=== PATIENT | male | born 2000 | race Two or more races ===

== ENCOUNTER 2024-12-19 05:21 | Emergency (ER) | payer MEDICAID, SELFPAY ==
[2024-12-19 05:22] VITALS: BMI 47.0
--- NOTE | 2024-12-19 05:36 | EDRME_ITS ---
Rapid Medical Screening Exam RME Arrival date/time: 12/19/24 05:21 Chief Complaint: Extremity Problem,Nontraumatic Vital signs: Vital Signs Temperature 98 F 12/19/24 05:39 Pulse Rate 87 12/19/24 05:39 Respiratory Rate 18 12/19/24 05:39 Blood Pressure 133/82 H 12/19/24 05:39 Pulse Oximetry (%) 97 12/19/24 05:39 RME Narrative: Right ankle pain/swelling x2 days, initiated after he stepped wrong off a [employer]
--- NOTE | 2024-12-19 05:36 | XR_ITS ---
EXAMINATION: Ankle, right 3 views . Technique: Ankle AP, oblique, lateral 3 views Date and time of exam: December 19, 2024 0447 hours INDICATIONS: Injury to the ankle today, ankle pain. FINDINGS: Mild lateral malleolar soft tissue swelling No ankle fracture or dislocation IMPRESSION: No ankle fracture or dislocation
[2024-12-19 05:39] VITALS: BP 133/82; PULSE 87; RESP 18; TEMP 36.6; O2SAT 97
[2024-12-19] MEDS: ACETAMINOPHEN 500 MG TABLET 1000 MG PO (05:58)
[2024-12-19] MEDS: KETOROLAC INJ 60 MG/2 ML VIAL 30 MG IM (05:58)
--- NOTE | 2024-12-19 06:55 | EDNOTE_ITS ---
ED Extremity Problem RME/HPI General Chief complaint: Extremity Problem,Nontraumatic Stated complaint: RIGHT ANKLE SWELLING X 2 DAYS Arrival date/time: 12/19/24 05:21 RME / HPI RME / HPI Narrative: DR. 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 There is no other injury or trauma there is no contusion. He has no other area of pain all of his other joints are within normal limits. He has not been sick in any other way. This is not a Workmen's Comp. 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 He states he can bear weight on his ankle but has pain with any movement. No fever vomiting diarrhea. Related Data Previous Rx's ?Medication ?Instructions ?Recorded nystatin 100,000 unit/gram topical 1 applic topical BI D #30 grams 07/26/20 ointment Allergies Allergy/AdvReac Type Severity Reaction Status Date / Time No Known Allergies Allergy Verified 12/19/24 05:22 Review of Systems Review of Systems Systems Reviewed: All systems reviewed, normal except as documented Narrative Review of Systems: Constitutional: DENIES: fevers; Eyes: DENIES: loss of vision; Head/Ear/Nose: DENIES: loss of hearing. Throat: DENIES: dysphagia. Cardiovascular: DENIES: chest pain, dyspnea, or syncope. Respiratory: DENIES: shortness of breath; Gastrointestinal: DENIES: rectal bleeding or melena. Genitourinary: DENIES: dysuria (painful or difficult urination); Musculoskeletal: POSITIVES: right ankle pain/swelling Skin: DENIES: rash; Neurological: DENIES: loss of function or movement; Psychiatric: DENIES: recent major life stressor, emotional problem, illicit drug use or abuse; Endocrinology: DENIES: weight change,; Hematologic/Lymphatic: DENIES: abnormal bruising. Allergic/Immunologic: DENIES: urticaria (hives). Past Medical History Social History SMOKING STATUS: Never smoker SUBSTANCE USE: does not use ALCOHOL: Never ED Exam Narrative Physical exam: Physical Exam: General: The vital signs were reviewed. The patient is non-toxic, in no apparent distress and appears healthy with a patent airway, no respiratory distress and has no apparent circulatory problems. Head & Scalp: Normocephalic, atraumatic. Face: Appears normal and is without lesions, deformity. Ears: Left external pinna appears normal. Right external pinna appears normal. Eyes: The sclera is anicteric. No obvious photophobia. The Left and Right Orbit/Lid/Conjunctiva appears normal without swelling, discoloration or injection. Nose: The nose is without deformity, discharge or tenderness; Throat: Appears normal. The mucous membranes are pink and moist without exudates, redness or mass seen. The tongue appears normal. Neck: The neck is supple and no apparent mass or adenopathy. Chest: The chest wall is normal in size and symmetry and has no chest wall tenderness or crepitus. The patient displays normal ventilator effort without retractions, accessory muscle use and has adequate air movement bilaterally with no wheezes and no rales. Cardiovascular: Regular rate and rhythm; No murmurs, rubs, or gallops; Gastrointestinal: The abdomen appears normal. No obvious hernias or mass. The abdomen is soft and benign, non-distended, with no pain, no guarding and no rebound tenderness. Bowel sounds are present and normal sounding. No CVA tenderness. Genitourinary: Back/Spine: Extremities/Musculoskeletal/lymphatic: The right ankle has a stable ankle mortise. There is swelling and puffiness laterally over the over the talofibular area. The leg and foot have normal sensation. Toes are warm with no atrophic changes. With inversion stressing he has immediate pain. There is no obvious bone pain on palpation of the tibia and fibula distally. The bilateral upper and lower extremities are warm. There is no evidence of arterial insufficiency. There is no evidence of venous insufficiency/edema. The patient spontaneously moves bilateral upper and lower extremities with no pain and no limitation of movement. There is no apparent, injury or trauma. Skin: The skin is warm, dry and intact. No rashes. No petechia. No purpura. No abnormal bruising. The color is appropriate with no cyanosis. Mental status/Psychiatric: Mental status is appropriate for age. The patient has no apparent delusions, visual hallucinations, no apparent audible hallucinations. The patient has no apparent suicidal thoughts/ideation and no apparent homicidal thoughts/ideation. Neurological: The patient is awake, alert, interactive, cordial, cooperative and is oriented to name and situation. The patient follows commands and answers historical question with no impairment. There is no visual disturbance apparent. The pupils are equal and reactive bilaterally with normal eye movements and no diplopia The bilateral upper and lower extremities have normal strength, normal range of motion and normal functioning. The gait, station and balance appear to be baseline with no acute change Course Quality Measures none Orders Category Date Time Status XR ankle comp RT min 3V Stat Exams 12/19/24 05:36 Completed Acetaminophen Tab [Tylenol ES Tab] Med 12/19/24 05:36 Discontinued 1,000 mg PO X1 ONE Ketorolac Inj [Toradol Inj] Med 12/19/24 05:36 Discontinued 30 mg IM X1 ONE Vital Signs Vital signs: Vital Signs Temperature 98 F 12/19/24 05:39 Pulse Rate 87 12/19/24 05:39 Respiratory Rate 18 12/19/24 05:39 Blood Pressure 133/82 H 12/19/24 05:39 Pulse Oximetry (%) 97 12/19/24 05:39 Extremity Problem MDM Narrative MDM Narrative:: Patient appears to have an inversion ankle injury but denies having a event where he rolled his ankle. Nonetheless he is got puffiness and tenderness over the ligamentous areas and not over the bone. This time we will immobilize for comfort. He can keep it elevated use ibuprofen for pain and follow-up with his doctor. X-ray was reviewed by myself there is no obvious fracture dislocation or foreign body. There are some slight lateral swelling seen. The stirrup splint to the ankle was applied. Patient seems to tolerate it well. He is neurovascularly intact postplacement. He can bear weight and ambulate appears to give him adequate immobilization. Patient was advised in detail and will follow-up with his doctor in 2 days he knows to be elevated he is ibuprofen as mentioned earlier. Kelsie Joel, am scribing for and in the presence of Dr. Pompa. Patient data External records reviewed:: [facility] previous records (Reviewed last ED visit dated 05/04/21, discharged with the following: Elevated liver enzymes) Clinical information provided by:: patient Social determinants that could affect healthcare access:: none Patient has the following chronic illnesses:: Denies any PMHx, surgeries, daily medications, or known allergies. How is presenting disease/condition affected by chronic disease/condition?: no chronic disease Evaluation data The following diagnostics were reviewed and interpreted by me:: radiology exam(s) Lab and/or radiology exams considered but not ordered:: none Interpretation Summary: See above under MDM narrative. RADIOLOGY Procedure(s): XR ankle comp RT min 3V Accession Number(s): [id number] cc: Samia Banks; Ankit Edward MD; Gato Hines PA-C~ EXAMINATION: Ankle, right 3 views . Technique: Ankle AP, oblique, lateral 3 views Date and time of exam: December 19, 2024 0447 hours INDICATIONS: Injury to the ankle today, ankle pain. FINDINGS: Mild lateral malleolar soft tissue swelling No ankle fracture or dislocation IMPRESSION: No ankle fracture or dislocation Dictated By: Aknit Edward MD Medications / Prescriptions Medications or Prescriptions considered but not ordered:: none Medication administrations:: Medication Administration History Discontinued Medications Acetaminophen (Acetaminophen 500 Mg Tablet) 1,000 mg PO X1 ONE Stop: 12/19/24 05:37 Last Admin: 12/19/24 05:58 Dose: 1,000 mg Documented By: BRIAN Ketorolac Tromethamine (Ketorolac Inj 60 Mg/2 Ml Vial) 30 mg IM X1 ONE Stop: 12/19/24 05:37 Last Admin: 12/19/24 05:58 Dose: 30 mg Documented By: CB see above Consultations Consultation(s) initiated? (list below): No Diagnosis Extremity Problem Differential Diagnosis: lower extremity edema and other (ankle fracture, ankle dislocation) Most likely diagnosis given after review of the tests above:: sprain of ankle, right Admission Indicated Admission indicated?: not indicated Admission Request Was there a request for admission?: No Disposition Plan Disposition Plan: Discharge Discharge Attestation Discharge Attestation: The patient and all family members were given an opportunity to ask questions and understood the discharge instructions. Discharge instructions specifically effects, indications for sooner follow up or return to the emergency department, and the expected course of current diagnosis. Patient condition: Stable Discharge Plan Plan Patient Disposition: HOME (Self Care) Prescriptions/Referrals Prescriptions/Med Rec: No Action nystatin 100,000 unit/gram ointment 1 applic topical BID Qty: 30 0RF Referrals: Samia Banks PA-C [Primary Care Provider] - In 1 week Problem List Clinical Impression: Sprain of ankle, right Patient/Caregiver Discharge Instructions Education Materials: ED Ankle Sprain (Adult), ED Splints and Casts Additional Instructions: Use the ankle splint as provided. Keep the ankle elevated is much as possible to minimize any further swelling. You can use ibuprofen for pain. No work for 7 days. Follow-up with your doctor in 5 to 7 days for reevaluation. As discussed torn ligaments 3 to 5 weeks before stabilization and pain relief occurs. No driving no sports until cleared by your doctor. Print Language: Panamanian Stand Alone Forms: Kristy Award Info., Patient Portal Info Letter
== END 2024-12-19 08:11 | disposition home or self-care (01) ==
PROVIDERS: Emergency Provider Emergency Medicine; PCP Specialist
DX: S93.401A Sprain of unspecified ligament of right ankle, initial encounter (principal); X58.XXXA Exposure to other specified factors, initial encounter
CPT/HCPCS: 29515; 73610; 96372; 99283; J1885; A9270

== ENCOUNTER 2025-06-27 07:12 | Emergency (ER) | payer MEDICAID, SELFPAY ==
[2025-06-27 07:22] VITALS: BP 128/87; PULSE 80; RESP 18; TEMP 36.8; O2SAT 99; BMI 47.0
--- NOTE | 2025-06-27 07:32 | EDNOTE_ITS ---
Nausea/Vomit./Diarrhea-RME/HPI General Chief complaint: Weakness Stated complaint: WEAKNESS, N/V Time Seen by Provider: 06/27/25 07:18 Source: patient Arrival date/time: 06/27/25 07:12 25-year-old male with no known medical history presents to the emergency room with a chief complaint of generalized weakness and nausea/vomiting x 3 days Mode of arrival: ambulatory Limitations: no limitations Related Data Previous Rx's ?Medication ?Instructions ?Recorded nystatin 100,000 unit/gram topical 1 applic topical BI D #30 grams 07/26/20 ointment Allergies Allergy/AdvReac Type Severity Reaction Status Date / Time No Known Allergies Allergy Verified 06/27/25 07:14 Review of Systems Review of Systems Systems Reviewed: All systems reviewed, normal except as documented Constitutional Constitutional: Reports system reviewed and no additional complaints, except as documented, Denies fatigue, Denies fever(s), Denies headache(s) and Denies weakness Eyes Eyes: Reports system reviewed and no additional complaints, except as documented, Denies blurry vision and Denies change in vision ENT Ears, Nose, Mouth, and Throat: Reports system reviewed and no additional complaints, except as documented, Denies otalgia, Denies headache(s), Denies nasal congestion, Denies throat swelling and Denies vertigo Cardiovascular Cardiovascular: Reports system reviewed and no additional complaints, except as documented, Denies chest pain, Denies dyspnea and Denies dyspnea on exertion Respiratory Respiratory: Reports system reviewed and no additional complaints, except as documented, Denies chest congestion, Denies cough, Denies dyspnea, Denies dyspnea on exertion and Denies wheezing Gastrointestinal Gastrointestinal: Reports system reviewed and no additional complaints, except as documented, Denies abdominal pain, Denies cramping, Reports nausea and Reports vomiting Genitourinary Genitourinary: Reports system reviewed and no additional complaints, except as documented, Denies dysuria and Denies hematuria Musculoskeletal Musculoskeletal: Reports system reviewed and no additional complaints, except as documented and Denies back pain Integumentary/Breasts Skin/Breast: Reports system reviewed and no additional complaints, except as documented and Denies wounds Neurologic Neurologic: Reports system reviewed and no additional complaints, except as documented, Denies confusion, Denies headache(s), Denies lack of coordination, Denies vertigo and Denies weakness Psychiatric Psychiatric: Reports system reviewed and no additional complaints, except as documented, Denies anxiety, Denies confusion, Denies depression, Denies paranoia, Denies suicidal ideation and Denies tactile hallucinations Endocrine Endocrine: Reports system reviewed and no additional complaints, except as documented and Denies fatigue Hematologic/Lymphatic Hematologic/Lymphatic: Reports system reviewed and no additional complaints, except as documented and Denies lymphadenopathy Allergic/Immunologic Allergic/Immunologic: Reports system reviewed and no additional complaints, except as documented, Denies throat swelling, Denies urticaria and Denies wheezing Past Medical History Social History SMOKING STATUS: Current every day smoker SUBSTANCE USE: does not use ED Exam General Limitations: Present no limitations General appearance: Present alert and in no apparent distress Head Head exam: Present atraumatic Eye Eye exam: Present normal appearance, PERRL and EOMI ENT ENT exam: Present normal exam, normal oropharynx and mucous membranes moist Neck Neck exam: Present normal inspection, full ROM and trachea midline Chest Chest inspection: Present normal inspection and symmetric chest wall rise Respiratory Respiratory exam: Present normal lung sounds bilaterally Cardiovascular Cardiovascular exam: Present regular rate, normal rhythm and normal heart sounds Abdominal Exam Abdominal exam: Present soft and normal bowel sounds Extremities Exam Extremities exam: Present normal inspection and full ROM Back Exam Back exam: Present normal inspection and full ROM Neurological Exam Neurological exam: Present alert, oriented X3 and CN II-XII intact Psychiatric Psychiatric exam: Present normal affect and normal mood Skin Skin exam: Present warm, dry, intact and normal color Course Quality Measures none Orders Category Date Time Status Bedside COVID-19 Antigen Test NOW Care 06/27/25 07:32 Active Bedside Influenza A&B Antigen Test NOW Care 06/27/25 07:32 Active CBC Stat Lab 06/27/25 07:52 Completed CMP [Comprehensive Metabolic Panel] Stat Lab 06/27/25 07:52 Completed FLU A&B [Influenza A & B Rapid Panel] Stat Lab 06/27/25 08:08 Completed Free T4 (Free Thyroxine) Stat Lab 06/27/25 07:52 Completed Hemoglobin A1C [Glycohemoglobin w (eAG)] Stat Lab 06/27/25 07:52 Completed Lipase Stat Lab 06/27/25 07:52 Completed TSH [Thyroid Stimulating Hormone] Stat Lab 06/27/25 07:52 Completed UA [Urinalysis] Stat Lab 06/27/25 07:45 Received Urine Culture Stat Lab 06/27/25 07:45 Received Ondansetron Odt [Zofran Odt] Med 06/27/25 07:32 Discontinued 4 mg PO X1 ONE Vital Signs Vital signs: Vital Signs Temperature 98.3 F 06/27/25 07:22 Pulse Rate 80 06/27/25 07:22 Respiratory Rate 18 06/27/25 07:22 Blood Pressure 128/87 H 06/27/25 07:22 Pulse Oximetry (%) 99 06/27/25 07:22 Oxygen Delivery Method Room Air 06/27/25 07:22 Nausea/Vomiting/Diarrhea MDM Narrative MDM Narrative:: 25-year-old male with no known medical history presents to the emergency room with a chief complaint of generalized weakness and nausea/vomiting x 3 days Patient is hemodynamically stable and in no apparent distress Patient states he has been on Ozempic for weight loss but he has been taking it for a couple of months now with no side effects. Physical examination shows a soft nontender abdomen. The patient denies chest pain palpitations or any other signs and symptoms obtain nausea and vomiting and weakness. CBC CMP were negative for any leukocytosis or any signs of any electrolyte imbalance. Thyroid function was within normal limits. COVID-19 and influenza were both negative Patient was discharged and educated to follow-up with primary care provider in the next 24 to 48 hours and return to the emergency room for any evidence of worsening signs or symptoms Patient data External records reviewed:: [facility] previous records Clinical information provided by:: patient Social determinants that could affect healthcare access:: none Patient has the following chronic illnesses:: No chronic illness How is presenting disease/condition affected by chronic disease/condition?: no chronic disease Evaluation data The following diagnostics were reviewed and interpreted by me:: lab results and radiology exam(s) Lab and/or radiology exams considered but not ordered:: Labs and radiology exams considered and ordered Interpretation Summary: N/A Medications / Prescriptions Medications / Prescriptions considered but not ordered:: Medication given Medication administrations:: Medication Administration History Discontinued Medications Ondansetron HCl (Ondansetron Odt 4 Mg Tabrap) 4 mg PO X1 ONE; Protocol Stop: 06/27/25 07:33 Last Admin: 06/27/25 07:58 Dose: 4 mg Documented By: ARF Medication given Consultations Consultation(s) initiated? (list below): No Diagnosis Nausea Differential Diagnosis: traveler's diarrhea, food poisoning, gastroenteritis, drug-induced nausea and vomiting and dehydration Most likely diagnosis given after review of the tests above:: Gastroenteritis Admission Indicated Admission indicated?: not indicated Admission Request Was there a request for admission?: No Disposition Plan Disposition Plan: Discharge Discharge Attestation Discharge Attestation: The patient and all family members were given an opportunity to ask questions and understood the discharge instructions. Discharge instructions specifically effects, indications for sooner follow up or return to the emergency department, and the expected course of current diagnosis. Patient condition: Stable Discharge Plan Plan Patient Disposition: HOME (Self Care) Discharge Disposition comment: Stable Prescriptions/Referrals Prescriptions/Med Rec: No Action nystatin 100,000 unit/gram ointment 1 applic topical BID Qty: 30 0RF Referrals: Samia Banks PA-C [Primary Care Provider] - In 1 week Problem List Clinical Impression: Gastroenteritis Patient/Caregiver Discharge Instructions Education Materials: ED Gastroenteritis, Noninfectious Additional Instructions: Please follow-up with your primary care provider in the next 24 to 48 hours Your blood work was negative for any acute findings. There is no signs of infection or any electrolyte imbalance. Your thyroid function was within normal limits. Your hemoglobin A1c levels are within normal limits. Please follow-up with your primary care provider for further management For any evidence of worsening signs or symptoms return to the emergency room immediately Print Language: Frisian Stand Alone Forms: Kristy Award Info., Work/School Release, Patient Portal Info Letter RONALD/AMANDA Supervising Physician YUIL Supervising Physician: Dr. Reyez
[2025-06-27 07:56] LABS: Collection Type, Urine Clean Catch
[2025-06-27] MEDS: ONDANSETRON ODT 4 MG TABRAP PO (07:58)
[2025-06-27 08:04] LABS: Basophils # (Auto) 0.0 Thou/mm3 (0.0-0.2); Basophils % (Auto) 0 % (0-2.5); Eosinophils # (Auto) 0.1 Thou/mm3 (0.0-0.5); Eosinophils % (Auto) 1 % (0-10); Hematocrit 47.6 % (41.0-53.0); Hemoglobin 15.7 g/dL (13.5-16.0); Immature Granulocytes Auto 0.08 Thou/mm3 (0.00-0.00); Lymphocytes # (Auto) 1.2 Thou/mm3 (1.0-4.8); Lymphocytes % (Auto) 11 % (10-50); Mean Corpuscular HGB Conc 33.0 g/dl (31.0-37.0); Mean Corpuscular Hemoglobin 29.5 pg (25.0-35.0); Mean Corpuscular Volume 90 fL (80-100); Monocytes # (Auto) 0.6 Thou/mm3 (0.0-0.8); Monocytes % (Auto) 6 % (0-12); Neutrophils # (Auto) 8.6 Thou/mm3 (1.8-7.7); Neutrophils % (Auto) 81 % (37-80); Nucleated Red Blood Cell # 0.00 Thou/mm3 (0.00-0.00); Nucleated Red Blood Cell % 0 /100 WBC (0); Platelet Count 289 Thou/mm3 (140-440); RDW Standard Deviation 43.2 fL (35.1-43.9); Red Blood Count 5.32 Miln/mm3 (4.50-5.90); White Blood Count 10.6 Thou/mm3 (3.8-10.6)
[2025-06-27 08:08] LABS: Bilirubin,Urine Negative (Negative); Blood,Urine Negative (Negative); Clarity,Urine Clear (Clear/Hazy); Color,Urine Yellow (Lt Yel-Yel); Glucose, Urine Negative (Negative); Hyaline Casts,Urine < 1 /hpf (0-1); Ketones,Urine Negative (Negative); Leukocyte Esterase,Urine Negative (Negative); Nitrite,Urine Negative (Negative); PH,Urine 6.0 (5.0-7.0); Protein,Urine Trace (Neg - Trace); RBC,Urine 2 /hpf (0-3); Specific Gravity,Urine 1.022 (1.001-1.035); Squamous Epithelial Cell,Urine < 1 /hpf (0-5); Urobilinogen,Urine Negative mg/dL (0.0-1.0); WBC,Urine 3 /hpf (0-5)
[2025-06-27 08:25] LABS: Alanine Aminotransferase 35 U/L (10-49); Albumin, Serum 4.4 gm/dL (3.5-5.0); Albumin/Globulin Ratio 1.5 (1.2-2.2); Alkaline Phosphatase 113 U/L (46-116); Anion Gap 8 (7-16); Aspartate Amino Transferase 19 U/L (0-34); BUN/Creatinine Ratio 7 Ratio (12-20); Bilirubin,Total 0.9 mg/dL (0.3-1.2); Blood Urea Nitrogen 6 mg/dL (9-23); Calcium 9.3 mg/dL (8.3-10.6); Calcium (Corrected) 9.3 mg/dL (8.5-10.1); Carbon Dioxide 27.5 mMol/L (20.0-31.0); Chloride 105 mMol/L (98-107); Creatinine (Component) 0.9 mg/dL (0.6-1.3); Estimated Creatinine Clearance 165.5 mL/min (>60); Free T4 (Free Thyroxine) 1.13 ng/dL (0.89-1.76); Globulin 2.9 gm/dL (2.3-3.5); Glucose 99 mg/dL (74-106); Lipase 29 U/L (12-53); Osmolality,Calculated 277 (275-295); Potassium 4.1 mMol/L (3.4-5.1); Sodium 140 mMol/L (136-145); Thyroid Stimulating Hormone 0.94 uIU/mL (0.55-4.78); Total Protein 7.3 gm/dL (5.7-8.2); eGFR > 60 See Note
[2025-06-27 08:36] LABS: Influenza A Ag Negative; Influenza B Ag Negative
[2025-06-27 08:39] LABS: Glucose Estimated Average 88 mg/dL (80-131); Hemoglobin A1C 4.7 % Hgb (4.8-6.0)
== END 2025-06-27 09:26 | disposition home or self-care (01) ==
PROVIDERS: Emergency Provider Nurse Practitioner Family; PCP Specialist
DX: K52.9 Noninfective gastroenteritis and colitis, unspecified (principal)
CPT/HCPCS: 36415; 80053; 81001; 83036; 83690; 84439; 84443; 85025; 87086; 87502; 99284; Q0162